=== PATIENT | male | born 1985 | race Caucasian/White ===

== ENCOUNTER 2016-11-28 20:16 | Emergency (ER) | payer OTHER ==
--- NOTE | 2016-11-28 20:48 | UC ---
Respiratory Complaint HPI - HPI Summary HPI Summary: COUGH, CONGESTION X 1 WK, SORE THROAT, DIZZY, SHORT OF BREATH WHEN HE LAYS DOWN. Thinks he has the flu. works at a [employer] and exposed to a lot. Sx x 1 wk but got suddenly worse this afternoon when he was out playing in the rain. ? fever, significant body aches, decreased appetite. feels very weak - this is what he means by dizzy. + smoker. no asthma hx. Here with his and dtr - History of Current Complaint Chief Complaint: UCGeneralIllness Stated Complaint: SORE THROAT,CONGESTION Time Seen by Provider: 11/28/16 20:47 - Allergies/Home Medications Allergies/Adverse Reactions: Allergies Allergy/AdvReac Type Severity Reaction Status Date / Time No Known Allergies Allergy Verified 11/28/16 20:32 Home Medications: Home Medications GuaiFENesin DM* [Robitussin DM*] 10 ml PO Q6H PRN 11/28/16 [History Confirmed ] PMH/Surg Hx/FS Hx/Imm Hx Previously Healthy: Yes - Surgical History Surgical History: Yes Surgery Procedure, Year, and Place: appendectomy. bilat arm surgery age 8 yo ( severed artery/nerves), went through glass window - Family History Known Family History: Positive: Respiratory Disease - Social History Alcohol Use: Rare Substance Use Type: None Smoking Status (MU): Light Every Day Tobacco Smoker Type: Cigarettes Amount Used/How Often: 1 ppd Length of Time of Smoking/Using Tobacco: 15 YRS Household Exposure Type: Cigarettes Review of Systems Constitutional: Fever, Chills, Fatigue Skin: Negative Eyes: Negative ENT: Negative Respiratory: Shortness Of Breath, Cough Cardiovascular: Negative Gastrointestinal: Negative Genitourinary: Negative Motor: Weakness Neurovascular: Negative Musculoskeletal: Negative Neurological: Negative Psychological: Negative All Other Systems Reviewed And Are Negative: Yes Physical Exam Triage Information Reviewed: Yes Appearance: Well-Nourished, Ill-Appearing Vital Signs: Initial Vital Signs Temp 99.1 F 11/28/16 20:26 Pulse 106 11/28/16 20:26 Resp 16 11/28/16 20:26 BP 125/51 11/28/16 20:26 Pulse Ox 97 11/28/16 20:26 Vital Signs Reviewed: Yes Eye Exam: Normal Eyes: Positive: Conjunctiva Clear ENT Exam: Normal ENT: Positive: Hearing grossly normal, Pharyngeal erythema - + PND, no exudate, TMs normal. Negative: Tonsillar swelling, Tonsillar exudate Dental Exam: Normal Neck exam: Normal Neck: Positive: Supple, Nontender, No Lymphadenopathy Respiratory Exam: Normal Respiratory: Positive: Chest non-tender, No respiratory distress, No accessory muscle use, Decreased breath sounds, Rhonchi - b/l. Negative: Crackles, Stridor , Wheezing Cardiovascular Exam: Normal Cardiovascular: Positive: RRR, No Murmur, Pulses Normal Abdominal Exam: Normal Abdomen Description: Positive: Nontender, Soft Musculoskeletal Exam: Normal Neurological Exam: Normal Psychological Exam: Normal Skin Exam: Normal UC Diagnostic Evaluation - Laboratory O2 Sat by Pulse Oximetry: 97 Re-Evaluation - Re-Evaluation First Eval Re-Evaluation Time: 21:35 Change: Improved - much improved after albuterol neb, SOB resolved, can take deep breaths without coughing. HR decreased to 90 apical by my exam. Respiratory Course/Dx - Course Course Of Treatment: rapid flu is negative. CXR is negative. improved with alb. Albuterol HFA rx'd to use Q 4-6 hrs until sx resolved. Increase fluids, low juan carlos gatorade and water. They are very agreeable with this plan. Encouraged to return here or ER if symptoms worsen. - Differential Dx/Diagnosis Differential Diagnosis/HQI/PQRI: Bronchitis, Influenza, Lower Resp Infection, Sinusitis Provider Diagnoses: Bronchitis Discharge - Discharge Plan Condition: Stable Disposition: HOME Prescriptions: Albuterol HFA INHALER* [Ventolin HFA Inhaler*] 2 puff INH Q4H PRN #1 mdi PRN Reason: Cough Patient Education Materials: Acute Bronchitis (ED) Referrals: Angie Woodward [Primary Care Provider] - 2 Days Additional Instructions: Use the inhaler every 4-6 hrs until your symptoms resolve. Fluids and rest. rapid flu test was neg Chest xray was negative.
[2016-11-28] MEDS ORDERED: Albuterol 2.5 MG/3 ML NEB.SOL* (0.083%) INH ONE (21:04)
--- NOTE | 2016-11-28 21:31 | RAD ---
INDICATION: Cough COMPARISON: None TECHNIQUE: PA and lateral dual-energy views were obtained. FINDINGS: Bones/Soft Tissues: There are no acute bony findings. Cardiomediastinal: The cardiomediastinal silhouette is normal. Lungs: There are no infiltrates. Pleura: There are no pleural effusions. Other: None IMPRESSION: NO ACTIVE DISEASE.
[2016-11-28 21:50] VITALS: BP 106/63
== END 2016-11-28 21:48 | disposition home or self-care (01) ==
LOC: UCCORT 20:16
DX: J40 Bronchitis, not specified as acute or chronic (principal); F17.210 Nicotine dependence, cigarettes, uncomplicated
CPT/HCPCS: 71020; 87502; 99212; G0463

== ENCOUNTER 2018-02-02 20:14 | Emergency (ER) | payer OTHER ==
[2018-02-02 20:31] VITALS: BP 134/86
--- NOTE | 2018-02-02 20:52 | UC ---
Upper Extremity HPI - HPI Summary HPI Summary: Pt presents with left wrist pain since yesterday. Pt was moving a piece of lawn equipment and it slipped with the bar striking left wrist. Pt is LHD. Pt with persistent pain since. Pt has taken APAP x 1 yesterday. None today. No ice applied. Pt with baseline paresthesia in hand s/p previous UE injuries. No weakness + edema Little discomfort at rest. Pt with increased discomfort with movement of thumb and index Pt's medications reviewed this visit - History of Current Complaint Chief Complaint: UCUpperExtremity Stated Complaint: LFT WRIST INJURY Time Seen by Provider: 02/02/18 20:27 Hx Obtained From: Patient ?: No Onset/Duration: Sudden Onset Severity Initially: Moderate Severity Currently: Moderate Pain Intensity: 10 Pain Scale Used: 0-10 Numeric Location Of Pain: Is Discrete @ - left distal forearm Aggravating Factor(s): Movement, Flexion Alleviating Factor(s): Nothing Associated Signs And Symptoms: Positive: Swelling - Allergies/Home Medications Allergies/Adverse Reactions: Allergies Allergy/AdvReac Type Severity Reaction Status Date / Time No Known Allergies Allergy Verified 11/28/16 20:32 Home Medications: Home Medications Acetaminophen [APAP] 650 mg PO Q6H 02/02/18 [History Confirmed 02/02/18] PMH/Surg Hx/FS Hx/Imm Hx Previously Healthy: Yes - Surgical History Surgical History: Yes Surgery Procedure, Year, and Place: appendectomy. bilat arm surgery age 8 yo ( severed artery/nerves), went through glass window - Family History Known Family History: Positive: Respiratory Disease - Social History Occupation: Employed Full-time Lives: With Family Alcohol Use: Rare Substance Use Type: None Smoking Status (MU): Light Every Day Tobacco Smoker Type: Cigarettes Amount Used/How Often: 1 ppd Length of Time of Smoking/Using Tobacco: 15 YRS Household Exposure Type: Cigarettes Review of Systems Skin: Negative Musculoskeletal: Other: - discomfort left forearm All Other Systems Reviewed And Are Negative: Yes Physical Exam Triage Information Reviewed: Yes Appearance: Well-Appearing, No Pain Distress, Well-Nourished Vital Signs: Initial Vital Signs Temp 99.1 F 02/02/18 20:26 Pulse 84 02/02/18 20:26 Resp 16 02/02/18 20:26 BP 134/86 02/02/18 20:26 Pulse Ox 97 02/02/18 20:26 Vital Signs Reviewed: Yes Eyes: Positive: Conjunctiva Clear ENT Exam: Normal ENT: Positive: Hearing grossly normal Neck: Positive: Supple Respiratory: Positive: Normal breath sounds, No respiratory distress Cardiovascular: Positive: Other: - 2+ radial, ulna CBT< 2 sec all digits Musculoskeletal: Positive: Other: - + flex/ext elbow + flex/ext wrist with discomfort distal forearm lateral aspect with flexion + full AROM all digits with discomfort in forearm with movement of index and thumb No crepitus No snuffbox pain Neurological Exam: Normal Neurological: Positive: Alert, Other: - + thumb up, a ok finger spread, finger cross Pt with discomfort distal forearm with extension thumb Psychological Exam: Normal Psychological: Positive: Normal Response To Family Skin: Positive: Other - +Pt with exetensive scars b/l forearms from previous trauma pt with edema over distal lateral dorsal forearm. discomfort with direct palpation. No ecchymosis, no crepitus Diagnostics - Radiology No standard instances Radiology Interpretation Completed By: Radiologist - no fx Upper Extremity Course/Dx - Course Course Of Treatment: Pt with direct trauma to distal dorsal forearm. + edema. Pain along extensor muscles of thumb and index. No fx. thumb spica. ice. rest. pt decline analgesia. Pt declined work note. will f/u with ortho at [facility] - rad gave disc - Differential Dx/Diagnosis Provider Diagnoses: wrist sprain Discharge - Sign-Out/Discharge Documenting (check all that apply): Discharge/Admit/Transfer - Discharge Plan Condition: Stable Disposition: HOME Patient Education Materials: Contusion in Adults (ED), Wrist Sprain (ED) Referrals: Angie Woodward [Primary Care Provider] - Additional Instructions: -wear splint as much possible for comfort and support -apply ice (20 min at a time) every 2-3 hours for the next 2 days -Elevate your arm - this will help with swelling and pain -Okay to alternate ibuprofen (Advil, Motrin) and Tylenol every 3 hours for pain. Take with food. Do NOT take for more than 4-5 days -Contact your orthopedic doctor at [facility] to arrange a follow-up appointment next week. Contact your doctor or return with questions or concerns - Billing Disposition and Condition Condition: STABLE Disposition: HOME
--- NOTE | 2018-02-02 20:54 | RAD ---
HISTORY: Left wrist trauma, pain COMPARISONS: None VIEWS: 3, Frontal, lateral, and oblique views of the left wrist FINDINGS: BONE DENSITY: Normal. BONES: There is no displaced fracture. JOINTS: There is no arthropathy. ALIGNMENT: There is no dislocation. SOFT TISSUES: Unremarkable. OTHER FINDINGS: None. IMPRESSION: NO ACUTE OSSEOUS INJURY. IF SYMPTOMS PERSIST, RECOMMEND REPEAT IMAGING.
== END 2018-02-02 21:10 | disposition home or self-care (01) ==
LOC: UCCORT 20:14
DX: S63.502A Unspecified sprain of left wrist, initial encounter (principal); W22.8XXA Striking against or struck by other objects, initial encounter; Y92.9 Unspecified place or not applicable; F17.210 Nicotine dependence, cigarettes, uncomplicated
CPT/HCPCS: 99212; G0463

== ENCOUNTER 2018-04-26 18:28 | Emergency (ER) | payer OTHER ==
[2018-04-26 18:58] VITALS: BP 137/83
[2018-04-26] MEDS ORDERED: Fluorescein Sod TOPICAL 0.6* 0.6 MG TEST OPHTHALMIC ONE (19:25)
--- NOTE | 2018-04-26 19:25 | UC ---
Eye Complaint HPI - HPI Summary HPI Summary: Patient presents with 6-7 days of progressive discomfort and drainage from his left eye. Patient states initially was clear and he thought it was allergies. Patient states that he took Benadryl without improvement. Patient states over the last 2 days discharge has become yellow to green. Patient states is itchy. Patient states his lower lip feels discomfort with any kind of palpation. No fevers or chills. Patient does have a mild intermittent headache. No analgesia taken. Patient does not wear contact lenses. Patient reports mild photophobia. No vision changes. No sinus pain or nasal congestion. Patient denies feeling a foreign object entered his eye. 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 Patient's tetanus is up-to-date. No others at the house with similar symptoms. Pt's medications reviewed this visit - History of Current Complaint Chief Complaint: UCEye Stated Complaint: LEFT EYE DRAINAGE Time Seen by Provider: 04/26/18 19:17 Pain Intensity: 4 - Allergies/Home Medications Allergies/Adverse Reactions: Allergies Allergy/AdvReac Type Severity Reaction Status Date / Time No Known Allergies Allergy Verified 04/26/18 18:58 PMH/Surg Hx/FS Hx/Imm Hx Previously Healthy: Yes - Surgical History Surgical History: Yes Surgery Procedure, Year, and Place: appendectomy. bilat arm surgery age 8 yo ( severed artery/nerves), went through glass window - Family History Known Family History: Positive: Respiratory Disease - Social History Alcohol Use: Rare Substance Use Type: None Smoking Status (MU): Light Every Day Tobacco Smoker Type: Cigarettes Amount Used/How Often: 1/2 ppd Length of Time of Smoking/Using Tobacco: 15 YRS Household Exposure Type: Cigarettes Review of Systems Eyes: Drainage, Eye Redness, Photophobia All Other Systems Reviewed And Are Negative: Yes Physical Exam - Summary Physical Exam Summary: Vital Signs Reviewed: Yes A+Ox3, no distress Eyes: ANGELA. EOM intact and full mild injection left eye crisp fundocsopic margins. No photophobia no hordelum mild inflammation of lower lid. No pain with eye movement fluorescene - no uptake ENT: Hearing grossly normal neck: supple Respiratory: Positive: No respiratory distress, No accessory muscle use Cardiovascular: skin color reflect adequate perfusion Musculoskeletal Exam: LOVELACE x 4 without difficulty Neurological: Positive: Alert, ambulatory without difficulty Psychological: Positive: Normal Response To Family Skin: Positive: no rash, no ecchymosis Triage Information Reviewed: Yes Vital Signs: Initial Vital Signs Temp 98.9 F 04/26/18 18:52 Pulse 100 04/26/18 18:52 Resp 18 04/26/18 18:52 BP 137/83 04/26/18 18:52 Pulse Ox 99 04/26/18 18:52 Eye Complaint Course/Dx - Course Course Of Treatment: Patient with left high area edema itching and green discharge progressive for the last 6-7 days. Patient stated initially was clear and now it's more yellow to green. Patient stated lower lid is become painful and slightly edematous. No vision changes. No foreign body sensation. On exam, I injected. Lower lid is slightly inflamed and edematous. No crepitus. Suspect conjunctivitis. Patient given a prescription for erythromycin ointment. Patient referral to ophthalmology. Strict return precautions discussed. Patient comfortable in agreement with plan. Of note, patient's visual acuity was reviewed and better in the effected eye than in his right eye. - Differential Dx/Diagnosis Provider Diagnoses: conjunctivitis Discharge - Sign-Out/Discharge Documenting (check all that apply): Patient Departure - Discharge Plan Condition: Stable Disposition: HOME Prescriptions: Erythromycin OPTH OINT* [Erythromycin 0.5% OPTH OINT*] 1 applic LEFT EYE TID #1 ophth.oint Patient Education Materials: Conjunctivitis (ED) Referrals: Zachary Jones MD [Medical Doctor] - (schedule for recheck in 2-3 days) Angie Woodward [Primary Care Provider] - Additional Instructions: - apply a warm soak to your eye for 10 minutes, 3 times a day - apply antibiotic 3 times a day as prescribed - alternate ibuprofen (Advil, Motrin) and tylenol every 3 hours as needed for pain - Contact Dr. Jones, the eye doctor, to schedule a follow-up appointment If you have increased pain, vision changes, fever, or any other concerns it is recommended you contact Dr. Jones or go to the emergency department for further evaluation - Billing Disposition and Condition Condition: STABLE Disposition: Home
== END 2018-04-26 19:56 | disposition home or self-care (01) ==
LOC: UCCORT 18:28
DX: H10.9 Unspecified conjunctivitis (principal); F17.210 Nicotine dependence, cigarettes, uncomplicated
CPT/HCPCS: 99212; G0463